=== PATIENT | female | born 1990 | race Caucasian/White ===

== ENCOUNTER → 2020-08-10 | Outpatient (CLI) | payer OTHER ==
--- NOTE | 2020-08-11 08:13 | REP ---
INDICATION: THYROID DISORDER,THYROMEGALY, WT GAIN COMPARISON: None. TECHNIQUE: Schofield scale and color evaluation of the thyroid gland using the linear high frequency transducer. FINDINGS: Thyroid gland appears mildly heterogeneous and mildly enlarged. The right lobe measures 5.6 x 2.1 x 1.4 cm without focal nodule or cyst. Left lobe measures 5.2 x 1.7 x 1.2 cm and includes 4 mm lower pole cyst. Isthmus measures 2 mm in width. IMPRESSION: Mildly heterogeneous thyroid gland. Incidental 4 mm cyst in the lower pole left lobe. <Electronically signed by Kingston Renae > 08/11/20 [id number]
== END ==
LOC: M RAD 14:30 → M LAB 14:30
PROVIDERS: ATTEND Physician Assistant
DX: E07.89 Other specified disorders of thyroid (principal); R63.5 Abnormal weight gain; E04.1 Nontoxic single thyroid nodule

== ENCOUNTER → 2020-08-12 | Outpatient (CLI) | payer OTHER ==
[2020-08-12 11:17] LABS: BASO % 0.6 % (0.0-1.0); EOS # 0.1 10^3/uL (0.0-0.5); EOS % 1.6 % (0.0-3.0); HEMATOCRIT 41.4 % (36.0-47.0); LYMPH # 1.7 10^3/uL (1.5-5.0); LYMPH % 34.4 % (24.0-44.0); MEAN CORPUSCULAR HEMOGLOBIN 28.7 pg (27.0-33.0); MEAN CORPUSCULAR HGB CONC 31.4 g/dl (32.0-36.5); MEAN CORPUSCULAR VOLUME 91.4 fl (80.0-96.0); MONO # 0.4 10^3/uL (0.0-0.8); MONO % 7.6 % (0.0-5.0); NEUTROPHILS # 2.7 10^3/uL (1.5-8.5); NEUTROPHILS % 55.6 % (36.0-66.0); PLATELET COUNT, AUTOMATED 234 10^3/uL (150-450); RED BLOOD COUNT 4.53 10^6/uL (4.00-5.40); WHITE BLOOD COUNT 4.9 10^3/uL (4.0-10.0)
[2020-08-12 11:33] LABS: HEMOGLOBIN A1c 5.4 %
[2020-08-12 11:49] LABS: ALT/SGPT 22 U/L (12-78); BILIRUBIN,TOTAL 0.6 MG/DL (0.2-1.0); BLOOD UREA NITROGEN 12 MG/DL (7-18); CALCIUM LEVEL 8.9 MG/DL (8.5-10.1); CARBON DIOXIDE LEVEL 28 MEQ/L (21-32); CHLORIDE LEVEL 107 MEQ/L (98-107); CREATININE FOR GFR 0.75 MG/DL (0.55-1.30); FREE T4 0.84 NG/DL (0.76-1.46); GLOMERULAR FILTRATION RATE > 60.0 (>60); GLUCOSE, FASTING 89 MG/DL (70-100); POTASSIUM SERUM 4.1 MEQ/L (3.5-5.1); SODIUM LEVEL 140 MEQ/L (136-145); TOTAL PROTEIN 7.4 GM/DL (6.4-8.2)
[2020-08-14 11:04] LABS: CORTISOL AM 6.1 UG/DL (4.3-22.4); TOTAL 25(OH) VITAMIN D 24.3 NG/ML (30.0-100.0)
== END ==
LOC: M LAB 10:39
PROVIDERS: ATTEND Physician Assistant
DX: R63.5 Abnormal weight gain (principal)

== ENCOUNTER → 2020-09-14 | Outpatient (REF) | payer OTHER | LOC: M SFHCWAGY 08:36 | PROVIDERS: ATTEND Nurse Practitioner Women's Health | DX: Z12.4 Encounter for screening for malignant neoplasm of cervix (principal); Z77.9 Other contact with and (suspected) exposures hazardous to health | CPT/HCPCS: G0123; G0463 ==

== ENCOUNTER → 2020-09-28 | Outpatient (CLI) | payer OTHER ==
--- NOTE | 2020-09-28 15:04 | REP ---
INDICATION: N93.9 ABNORMAL UTERINE BLEEDING,N94.6 DYSMENORRHEA. COMPARISON: None. TECHNIQUE: Transabdominal and transvaginal scanning performed. FINDINGS: Uterine dimensions are 6.8 x 3.6 x 4.6 cm. Endometrial echo is 3 mm in AP dimension and centrally placed. Uterus is retroverted. There is a nabothian cyst in the region of the cervix 1.5 cm in maximum diameter. The bladder measures 7.9 x 3.6 x 8.4 cm. The right ovary has dimensions of 3.2 x 1.8 x 1.6 cm. It's Doppler flow is normal with a resistive index of 0.47. The left ovary dimensions are 3.2 x 1.7 x 2.3 cm. It's Doppler flow was normal with resistive index of 0.47. There is no adnexal mass identified. No free fluid is seen in the cul-de-sac. IMPRESSION: Negative pelvic ultrasound. <Electronically signed by Kushal Schofield > 09/28/20 [id number]
== END ==
LOC: M WHC 13:55
PROVIDERS: ATTEND Nurse Practitioner Women's Health
DX: N93.9 Abnormal uterine and vaginal bleeding, unspecified (principal); N94.6 Dysmenorrhea, unspecified

== ENCOUNTER → 2022-03-21 | Outpatient (CLI) | payer OTHER | LOC: M RAD 08:45 | PROVIDERS: ATTEND Physician Assistant | DX: R55 Syncope and collapse (principal); M50.022 Cervical disc disorder at C5-C6 level with myelopathy; M50.223 Other cervical disc displacement at C6-C7 level ==

== ENCOUNTER → 2022-06-29 | Outpatient (REF) | payer OTHER | LOC: M LAB REF 18:06 | PROVIDERS: ATTEND Physician Assistant Medical | DX: R50.9 Fever, unspecified (principal) ==

== ENCOUNTER → 2023-03-31 | Outpatient (CLI) | payer OTHER | LOC: M PLAIMG 10:06 | PROVIDERS: ATTEND Otolaryngology | DX: H70.91 Unspecified mastoiditis, right ear (principal) ==